=== PATIENT | male | born 1960 | race Caucasian/White ===

== ENCOUNTER 2018-04-09 12:02 | Emergency (ER) | payer SELFPAY ==
[~2018-04-09] VITALS: Ht 175.3 cm; Wt 118.8 kg
[2018-04-09] MEDS ORDERED: SODIUM CHLORIDE 0.9% 1000ML 1,000 ML IV STA (13:34)
[2018-04-09 13:38] LABS: BILIRUBIN,URINE 1+ (NEGATIVE); CLARITY,URINE SL CLOUDY (CLEAR); COLOR,URINE YELLOW (YELLOW); KETONES,URINE 1+ (NEGATIVE); LEUKOCYTE ESTERASE ,URINE NEGATIVE (NEGATIVE); NITRITE,URINE NEGATIVE (NEGATIVE); PROTEIN,URINE DIPSTICK 2+ (NEGATIVE); URINE UROBILINOGEN 0.2 mg/dL (0.2 - 1)
[2018-04-09 13:51] LABS: AMORPHOUS SEDIMENT,URINE MODERATE (FEW); BACTERIA,URINE FEW /HPF; EPITHELIAL CELLS,URINE FEW /LPF; WBC,URINE (MAN) 0-5 /HPF (0-5)
[2018-04-09 13:52] LABS: MUCUS,URINE FEW (RARE)
[2018-04-09] MEDS ORDERED: HYDROMORPHONE 2MG/ML 2 MG/ML ML IV NR (16:15)
[2018-04-09] MEDS ORDERED: HYDROMORPHONE 2MG/ML 2 MG/ML ML IV ONE (18:30)
[2018-04-10] MEDS ORDERED: CLONAZEPAM1 MG PO (15:25)
[2018-04-10] MEDS ORDERED: HYDROCHLOROTHIA25 MG PO (15:25)
[2018-04-10] MEDS ORDERED: SERTRALINE HCL100 MG PO (15:25)
[2018-04-10] MEDS ORDERED: TYLENOL PO (15:25)
== END 2018-04-09 13:45 | disposition left against medical advice (07) ==
LOC: ER 12:02
DX: R50.9 Fever, unspecified (principal)
CPT/HCPCS: 81001; J1170

== ENCOUNTER → 2018-04-11 | Day surgery (SDC) | payer SELFPAY ==
[~2018-04-11] MED LIST: BUPIVACAINE 0.25% 30ML SDV INJ ONE; CEFAZOLIN SOD 2 GM/D5W 50ML 50 ML IV ONE; CLONAZEPAM1 MG PO; DEXAMETHASONE SOD PHOS INJ 4 MG/ML VIAL ONE; FENTANYL CITRATE/PF 100MCG/2 ML INJ ONE; HYDROCHLOROTHIA25 MG PO; KETOROLAC TROMETHAMINE 30 MG/ML VIAL ONE; LIDOCAINE HCL 2% LOCAL INJ 5 ML SDV VIAL INJ ONE; MIDAZOLAM HCL 2 MG/2 ML VIAL ONE; PROPOFOL IV EMULSION 10 MG/ML 20 ML VIAL ONE; SERTRALINE HCL100 MG PO; SEVOFLURANE INHAL SOLN 250 ML PEN BTL ONE; SIMVASTATIN 20 MG TAB ONE; TYLENOL PO
[2018-04-11 13:07] LABS: HEMATOCRIT 31.2 % (38.2-49.6); HEMOGLOBIN 10.3 g/dL (14.0-18.0)
[2018-04-11 13:26] LABS: ANION GAP 15.6 mmol/L (8-16); BLOOD UREA NITROGEN 10 mg/dL (7-26); BUN/CREATININE RATIO 14 (6-25); CALCIUM 9.4 mg/dL (8.4-10.2); CARBON DIOXIDE 23 mmol/L (22-29); CHLORIDE 100 mmol/L (98-107); CREATININE, SERUM 0.71 mg/dL (0.72-1.25); EST GLOMERULAR FILTRATION RATE > 60 ML/MIN (60-); GLUCOSE 131 mg/dL (74-118); POTASSIUM 3.6 mmol/L (3.5-5.1); SODIUM 135 mmol/L (136-145)
[2018-04-11 16:15] VITALS: BP 119/66
--- NOTE | 2018-04-11 16:21 | Operative Report ---
DATE OF PROCEDURE: April 11, 2018 PREOPERATIVE DIAGNOSIS: Generalized lymphadenopathy. POSTOPERATIVE DIAGNOSIS: Generalized lymphadenopathy. PROCEDURE PERFORMED: Excision of deep right cervical lymph node. 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 ANESTHESIA: General. INDICATIONS AND FINDINGS: The patient is a 57-year-old male who presented with fever and generalized lymphadenopathy. At surgery there was a node that was about 2 cm in diameter which was excised from the base of the right neck, which was beneath the cervical fascia. Pathologic examination suggested probable lymphoma. TECHNIQUE: After adequate general anesthesia, the patient in supine position, the right neck was prepped and draped in a sterile fashion with Betadine solution. A transverse incision was made over the area of the mass and carried down through the subcutaneous tissue and platysma and through the superficial cervical fascia. The mass was seen beneath this and would appear to be a lymph node about 2 cm in diameter. This was excised from the surrounding tissues. Vessels going to the node were cauterized, and one vessel was suture-ligated with 3-0 Vicryl. The node was submitted for pathology where evaluation suggested probable lymphoma. Hemostasis in the wound was seen to be adequate. The wound was then infiltrated with 0.25% Marcaine. The wound was closed with 3-0 Vicryl to the superficial fascia and 4-0 Vicryl subcuticular to the skin. Dermabond and a sterile dressing were applied. The patient tolerated the procedure well. Estimated blood loss was 20 mL. There were no complications. All counts were correct, and the patient was taken to the recovery room in satisfactory condition. Job#: [id number]
== END | disposition home or self-care (01) ==
LOC: OR 11:39
PROVIDERS: ATTEND Surgery
DX: C81.71 Other Hodgkin lymphoma, lymph nodes of head, face, and neck (principal); B27.00 Gammaherpesviral mononucleosis without complication; H91.90 Unspecified hearing loss, unspecified ear; G47.33 Obstructive sleep apnea (adult) (pediatric); D64.9 Anemia, unspecified; E78.00 Pure hypercholesterolemia, unspecified; F41.9 Anxiety disorder, unspecified; F32.9 Major depressive disorder, single episode, unspecified
CPT/HCPCS: 36415; 38510; 80048; 85014; 85018; 88305; 88329; 93005; J0690; J1100; J1885; J2001; J2250; J2704